=== PATIENT | male | born 1990 | race Caucasian/White ===

== ENCOUNTER 2021-02-24 11:43 | Outpatient (CLI) | payer BC, SELFPAY ==
[2021-02-24 14:30] LABS: Liquefaction Semen Complete in 30 min. (<30 minutes); Semen Color Opaque (Grey-opaque); Semen Immotility 50 %; Semen Non-Progressive Motility 10 %; Semen Progressive Motility 40 % (>32); Semen Total Motility 50 (>40% (PM+NP)); Semen Viscosity Not Increased (Not Increa.); Sperm Count 48.8 Mil/mL (60-150 million/mL)
[2021-02-24 14:31] LABS: Semen Morphology Result to Follow
[2021-02-28 13:10] LABS: Fructose, Semen 247 mg/dL (150-600)
== END 2021-02-24 11:44 | disposition home or self-care (01) ==
LOC: CHSLAB 11:49
DX: Z31.41 Encounter for fertility testing (principal)
CPT/HCPCS: 82757; 88160; 89320

== ENCOUNTER 2021-08-31 10:43 | Emergency (ER) | payer BC, SELFPAY ==
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
[2021-08-31 11:00] VITALS: BP 129/84; PULSE 95; RESP 16; TEMP 36.7; O2SAT 100
--- NOTE | 2021-08-31 11:53 | PC.NURSE ---
PT TO XRAY WITH XRAY STAFF.
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
[2021-08-31 13:12] VITALS: BP 129/84; PULSE 95; RESP 20; TEMP 36.3; O2SAT 98
== END 2021-08-31 13:00 | disposition home or self-care (01) ==
PROVIDERS: Emergency Provider Emergency Medicine
DX: S13.4XXA Sprain of ligaments of cervical spine, initial encounter (principal); M25.512 Pain in left shoulder; V89.2XXA Person injured in unspecified motor-vehicle accident, traffic, initial encounter
CPT/HCPCS: 70450; 71045; 72125; 73030; 99284; A4565

== ENCOUNTER 2022-10-22 13:21 | Outpatient (CLI) | payer BC, SELFPAY ==
--- NOTE | 2022-10-22 | ECG_ITS ---
Measurements Intervals [place] Rate: 68 P: 35 CO: 168 QRS: 31 QRSD: 91 T: 35 QT: 372 QTc: 397 Interpretive Statements SINUS RHYTHM NORMAL ECG NO PREVIOUS ECG AVAILABLE FOR COMPARISON Electronically Signed On 10-22-2022 14:43:56 CDT by Daniel Clement M.D.
== END 2022-10-22 13:22 | disposition home or self-care (01) ==
LOC: ANHCARD 13:31
PROVIDERS: PCP Family Medicine; Visit Provider Psychiatry & Neurology Psychiatry
DX: F25.0 Schizoaffective disorder, bipolar type (principal)
CPT/HCPCS: 93005